=== PATIENT | female | born 1955 | race Caucasian/White ===

== ENCOUNTER → 2018-11-26 | Outpatient (CLI) | payer BC ==
[2018-11-26 15:47] LABS: ABSOLUTE EOSINOPHILS # (AUTO) 0.1 10^3/uL (0.0-0.6); ABSOLUTE MONOCYTES (AUTO) 0.4 10^3/uL (0.1-1.4); ABSOLUTE NEUT (AUTO) 2.6 10^3/uL (1.7-8.2); BASOPHILS % (AUTO) 0.7 % (0-2); EOSINOPHILS % (AUTO) 2.6 % (0-6); HEMATOCRIT 35.6 % (36.0-47.0); HEMOGLOBIN 11.6 g/dL (12.0-15.5); MEAN CORPUSCULAR HGB CONC 32.7 g/dL (32.0-36.0); MEAN CORPUSCULAR VOLUME 74 fl (80-97); MONOCYTES % (AUTO) 7.3 % (3-13); PLATELET COUNT 277 10^3/uL (150-450); RED BLOOD COUNT 4.84 10^6/uL (3.72-5.28); RED CELL DISTRIBUTION WIDTH 16.5 % (11.5-14.0); SEGMENTED NEUTROPHILS % (AUTO) 50.4 % (42-78); TOTAL CELLS COUNTED % (AUTO) 100 %; WHITE BLOOD COUNT 5.2 10^3/uL (4.0-10.5)
== END ==
LOC: OD 14:56
PROVIDERS: ATTEND Radiology Radiation Oncology
DX: C70.0 Malignant neoplasm of cerebral meninges (principal)
CPT/HCPCS: 36415; 82947; 85025

== ENCOUNTER → 2018-12-11 | Outpatient (CLI) | payer BC ==
[2018-12-11 15:57] LABS: ABSOLUTE LYMPHOCYTES (AUTO) 1.7 10^3/uL (0.5-4.7); ABSOLUTE MONOCYTES (AUTO) 0.3 10^3/uL (0.1-1.4); ABSOLUTE NEUT (AUTO) 4.1 10^3/uL (1.7-8.2); BASOPHILS % (AUTO) 0.4 % (0-2); EOSINOPHILS % (AUTO) 0.3 % (0-6); HEMATOCRIT 36.7 % (36.0-47.0); HEMOGLOBIN 11.9 g/dL (12.0-15.5); LYMPHOCYTES % (AUTO) 27.7 % (13-45); MEAN CORPUSCULAR HEMOGLOBIN 23.6 pg (27.0-33.4); MEAN CORPUSCULAR HGB CONC 32.6 g/dL (32.0-36.0); MEAN CORPUSCULAR VOLUME 73 fl (80-97); MONOCYTES % (AUTO) 4.7 % (3-13); PLATELET COUNT 321 10^3/uL (150-450); RED BLOOD COUNT 5.06 10^6/uL (3.72-5.28); RED CELL DISTRIBUTION WIDTH 16.9 % (11.5-14.0); SEGMENTED NEUTROPHILS % (AUTO) 66.9 % (42-78); TOTAL CELLS COUNTED % (AUTO) 100 %; WHITE BLOOD COUNT 6.1 10^3/uL (4.0-10.5)
[2018-12-11 16:22] LABS: ANION GAP 9 (5-19); BLOOD UREA NITROGEN 25 mg/dL (7-20); CALCIUM 10.1 mg/dL (8.4-10.2); CARBON DIOXIDE 29 mmol/L (22-30); CHLORIDE 100 mmol/L (98-107); GLUCOSE 155 mg/dL (75-110); POTASSIUM 4.7 mmol/L (3.6-5.0); SODIUM 138.2 mmol/L (137-145)
[2018-12-11 16:26] LABS: C-REACTIVE PROTEIN < 5.0 mg/L (<10.0)
[2018-12-11 16:37] LABS: ERYTHROCYTE SEDIMENTATION RATE 11 mm/hr (0-30)
== END ==
LOC: OD 14:47
PROVIDERS: ATTEND Orthopaedic Surgery
DX: M25.562 Pain in left knee (principal)
CPT/HCPCS: 36415; 80048; 85025; 85652; 86140

== ENCOUNTER → 2018-12-12 | Outpatient (CLI) | payer BC ==
--- NOTE | 2018-12-15 14:00 | RADIOLOGY REPORT (SQ) ---
EXAM DESCRIPTION: NM 3 PHASE BONE SCAN COMPLETED DATE/TIME: 12/12/2018 12:09 pm REASON FOR STUDY: PAIN IN LEFT KNEE (M25.562) M25.562 PAIN IN LEFT KNEE COMPARISON: No available imaging studies for comparison. RADIONUCLIDE AND DOSE: 20.8 millicuries Tc99m MDP. The route of agent administration: Intravenous. ADDITIONAL DRUGS AND DOSES: None. TECHNIQUE: Following injection of the radiopharmaceutical, serial blood flow images acquired. Equil ibrium blood pool images then acquired. Routine delayed images at 3 hour acquired of the areas of cl inical concern with additional focused images as needed. AREA OF INTEREST: Left knee LIMITATIONS: None. FINDINGS: VASCULAR FLOW IMAGES: No asymmetry or focal areas of hyperemia. BLOOD POOL IMAGES: No asymmetry or focal areas of soft-tissue hyper-perfusion. BONES: Increased uptake both knees, left greater than right. Left knee arthroplasty. KIDNEYS: Kidneys not imaged. OTHER: No other significant finding. IMPRESSION: No evidence of loosening or infection. COMMENT: Quality measure 147: Current bone scan is compared with any available plain radiographs, p rior bone scans, and CT/MRI. TECHNICAL DOCUMENTATION: JOB ID: [id number] [employer]- All Rights Reserved Reading location - IP/workstation name: [email or web address]
== END ==
LOC: RAD 08:05
PROVIDERS: ATTEND Orthopaedic Surgery
DX: M25.562 Pain in left knee (principal)
CPT/HCPCS: 78315; A9561

== ENCOUNTER → 2019-03-22 | Outpatient (CLI) | payer BC ==
--- NOTE | 2019-03-23 09:12 | RADIOLOGY REPORT (SQ) ---
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 RADIONUCLIDE AND DOSE: 12.16 mCi F18 FDG The route of agent administration: Intravenous FASTING BLOOD SUGAR: 133 mg/dl CONTRAST TYPE AND DOSE: No CT contrast given. TECHNIQUE: Blood glucose level was verified. Above dose of FDG was injected intravenously. 2-D seg mented attenuation correction images were obtained from the base of the skull to the midthighs. Nonc ontrast CT images were obtained for attenuation correction and fusion with emission images. CT image s were performed without oral or intravenous contrast and are not sensitive for parenchymal lesions. A series of overlapping emission PET images were obtained. Images reviewed and manipulated at [facility] work station by the radiologist. Images stored on PACS. LIMITATIONS: None. FINDINGS: HEAD AND NECK: Increased uptake associated with recently described left brain mass which h as eroded the left parietal, posterior frontal, and left cerebellar calvarium. 6.4 SUV. CHEST: No areas of abnormal metabolic activity in the chest. ABDOMEN AND PELVIS: No areas of abnormal metabolic activity in the abdomen or pelvis. Expected physi ologic activity is present in the genitourinary system and bowel. PROXIMAL LOWER EXTREMITIES: No areas of abnormal metabolic activity in the soft tissues of the lower extremities. BONES: No abnormal metabolic activity in the visualized skeleton. ADDITIONAL CT FINDINGS: Cardiomegaly. Prior cholecystectomy. Diverticulosis. OTHER: No other significant findings. IMPRESSION: Hypermetabolic left brain mass. No other significant uptake. TECHNICAL DOCUMENTATION: JOB ID: [id number] [employer]- All Rights Reserved Reading location - IP/workstation name: [email or web address]
== END ==
LOC: RAD 14:50
PROVIDERS: ATTEND Neurological Surgery
DX: D49.6 Neoplasm of unspecified behavior of brain (principal)
CPT/HCPCS: 78815; A9552